=== PATIENT | female | born 1990 | race Caucasian/White ===

== ENCOUNTER 2021-04-30 03:10 | Inpatient (IN) ==
[~2021-04-30 03:10] MED LIST: *HR* Nalbuphine 10 MG/ML AMPUL IV PRN; Azithromycin 500 MG in 0.9 % Sodium Chloride 250 ML IVPB PRN; Famotidine 20 MG/2 ML VIAL IVP PRN; Metoclopramide 10 MG/2 ML VIAL IVP PRN; Naloxone 0.4 MG/ML INJ IVP PRN; Ondansetron 4 MG/2 ML VIAL IVP PRN; Penicillin G Potassium 5,000,000 UNIT in 0.9 % Sodium Chloride Mini Bag 100 ML IVPB ONE
[2021-04-30] MEDS ORDERED: Ringers Solution, Lactated 1,000 ML IVC SCH (03:15)
[2021-04-30] MEDS ORDERED: Ringers Solution, Lactated 1,000 ML ONE (03:22)
[2021-04-30 03:47] LABS: Amphetamine Screen,Urine Negative ng/mL (Cutoff=1000); Barbiturate Screen,Urine Negative ng/mL (Cutoff=200); Benzodiazepines Screen,Urine Negative ng/mL (Cutoff=200); Cannabinoid Screen,Urine Negative ng/mL (Cutoff = 50); Cocaine Screen,Urine Negative ng/mL (Cutoff= 300); Opiate Screen,Urine Negative ng/mL (Cutoff=300); Phencyclidine Screen,Urine Negative ng/mL (Cutoff=25)
[2021-04-30 04:10] LABS: Influenza A PCR Negative (Negative); Influenza B PCR Negative (Negative); Resp. Syncytial Virus PCR Negative (Negative); SARS-CoV-2 by PCR (In House) Negative (Negative)
[2021-04-30] MEDS ORDERED: Epidural Premix (fent/bupiv) 110 ML EP ONE (04:16)
[2021-04-30] MEDS ORDERED: *HR* FentaNYL (PF) 100 MCG/2 ML VIAL ONE (04:17)
[2021-04-30] MEDS ORDERED: Ropivacaine/PF 0.2% 20 ML VIAL ONE (04:17)
[2021-04-30 04:25] LABS: Basophils % 0.1 %; Eosinophils # 0.1 K/mcL (0.0-0.6); Eosinophils % 0.5 %; Hematocrit 27.5 % (35.3-44.9); Immature Granulocytes % 0.5 % (0-4); Lymphocytes # 1.7 K/mcL (0.6-4.6); Mean Corpuscular HGB Conc 32.7 g/dL (31.6-35.5); Mean Corpuscular Hemoglobin 29.7 pg (28.0-33.3); Mean Corpuscular Volume 90.8 fL (83.0-100.0); Mean Platelet Volume 9.7 fL (9.4-12.4); Monocytes # 0.7 K/mcL (0.0-1.3); Monocytes % 7.3 %; Neutrophils # 7.5 K/mcL (1.6-8.9); Platelet Count 159 K/mcL (140-400); Red Blood Count 3.03 M/mcL (3.82-4.97); Red Cell Distribution Width 14.6 % (11.5-14.5); Segmented Neutrophils % 74.6 %; White Blood Count 10.1 K/mcL (4.3-11.1)
[2021-04-30] MEDS ORDERED: *HR* FentaNYL (PF) 100 MCG/2 ML VIAL EP ONE (05:32)
[2021-04-30] MEDS ORDERED: EPHEDrine 50 MG/ML VIAL IVP PRN (05:32)
[2021-04-30] MEDS ORDERED: Ropivacaine/PF 0.2% 20 ML VIAL EP ONE (05:32)
[2021-04-30] MEDS ORDERED: Epidural Premix (fent/bupiv) 110 ML EP SCH (05:45)
[2021-04-30] MEDS: Penicillin G Potassium 2,500,000 UNIT/105 ML MLS IVPB SCH ×2 (07:21→11:22)
[2021-04-30] MEDS ORDERED: Oxytocin 20 units/ LR 1000 mL 20 UNIT/1,000 ML BAG IVC SCH ×2 (09:15→13:20)
[2021-04-30] MEDS ORDERED: Oxytocin 20 units/ LR 1000 mL 20 UNIT/1,000 ML BAG IVC ONE (13:20)
[2021-04-30] MEDS ORDERED: Measles/Mumps/Rubella Vacc 0.5 ML VIAL SQ PRN (13:20)
[2021-04-30] MEDS ORDERED: Rho Immune Globulin 1,500 UNIT SYRINGE IM PRN (13:20)
[2021-04-30] MEDS ORDERED: Benzocaine/Menthol 56 GM AEROSOL SPRAY TP PRN (13:20)
[2021-04-30] MEDS ORDERED: Lanolin 7 G OINT...G. TP PRN (13:20)
[2021-04-30] MEDS: Ibuprofen 600 MG TABLET PO PRN ×2 (13:28→19:47)
[2021-04-30 15:01] VITALS: O2SAT 99
[2021-04-30] MEDS: Acetaminophen 325 MG TABLET PO PRN (18:30)
[2021-05-01] MEDS: Ibuprofen 600 MG TABLET PO PRN (04:37)
[2021-05-01 07:47] VITALS: BP 109/68; PULSE 57; TEMP 97.9
[2021-05-01] MEDS: Acetaminophen 325 MG TABLET PO PRN (08:06)
[2021-05-01] MEDS ORDERED: Prenatal Vit/FA 1 EACH TABLET PO SCH (09:00)
== END 2021-05-01 13:42 | disposition home or self-care (01) | DRG 807 ==
LOC: 1NENULAB → 1NENUOBS 14:58
PROVIDERS: ADMIT Registered Nurse; ATTEND Registered Nurse